=== PATIENT | female | born 2000 | race Caucasian/White ===

== ENCOUNTER 2023-11-20 16:43 | Emergency (ER) | payer OTHER ==
[2023-11-20 17:11] VITALS: BP 112/67; PULSE 80; RESP 16; TEMP 99.5; BMI 23.3
[2023-11-20] MEDS ORDERED: IBUPROFEN 400 MG TABLET (FP) PO ONE ×2 (18:00→18:07)
[2023-11-20] MEDS ORDERED: LIDOCAINE HCL 1%, 10 MG/ML (20ML VIAL) ONE (18:08)
== END 2023-11-20 19:03 | disposition home or self-care (01) ==
LOC: FER 16:43
PROC: 0H9BXZZ Drainage of Right Upper Arm Skin, External Approach (ICD-10-PCS; principal; 2023-11-20)
DX: L02.412 Cutaneous abscess of left axilla (principal); L72.3 Sebaceous cyst
CPT/HCPCS: 10060; 99283-25